=== PATIENT | female | born 1995 | race Caucasian/White ===

== ENCOUNTER 2019-02-15 04:24 | Inpatient (IN) | payer BC ==
[2019-02-15] MEDS ORDERED: ceFAZolin 2 GM in Premix Bag 1 BAG IV ONE (05:19)
[2019-02-15] MEDS ORDERED: Metoclopramide 10 MG/2 ML SDV IVPUSH ONE (05:19)
[2019-02-15] MEDS ORDERED: Nalbuphine 10 MG/1 ML Vial IVPUSH PRN (05:19)
[2019-02-15] MEDS ORDERED: Citric Acid/Sodium Citrate Solution 30 ML Cup PO ONE (05:19)
[2019-02-15] MEDS ORDERED: Sodium Chloride 0.9% 10 ML Syringe FLUSH PRN (05:19)
[2019-02-15] MEDS ORDERED: Azithromycin 500 MG in Sodium Chloride 0.9% 250 ML IV ONE (05:29)
[2019-02-15] MEDS ORDERED: Lactated Ringers 1,000 ML IV SCH (05:30)
--- NOTE | 2019-02-15 05:50 | PCM.LDHP ---
L&D History of Present Illness - General Date of Service: 02/15/19 Admit Problem/Dx: Patient Status Order with Admit Dx/Problem 02/15/19 04:38 Patient Status [ADT] Routine 02/15/19 05:19 Patient Status [ADT] Routine Admission Diagnosis/Problem Admission Diagnosis/Problem Source of Information: Patient History Limitations: Reports: No Limitations - History of Present Illness Introduction:: Patient is a 24 y/o at 39 0/7 wks who presents with SROM. Patient has history of and was to undergo a planned RLTCS tomorrow AM. Has been doing well, but around midnight noted a large gush of clear fluid. 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: , Other (See Below) (History of endometritis after 1st ) : 2 Para: 1 LMP (Approximate): - Past Surgical History Female Surgical History: Reports: Section Social & Family History - Tobacco Use Smoking Status *Q: Never Smoker - Alcohol Use Alcohol Use History: No - Recreational Drug Use Recreational Drug Use: No H&P Review of Systems - Review of Systems: Review Of Systems: See Below General: Reports: No Symptoms Pulmonary: Reports: No Symptoms Cardiovascular: Reports: No Symptoms Gastrointestinal: Reports: No Symptoms Genitourinary: Reports: No Symptoms Musculoskeletal: Reports: No Symptoms Psychiatric: Reports: No Symptoms Neurological: Reports: No Symptoms L&D Exam - Exam Exam: See Below - Vital Signs Weight: 89.358 kg - OB Specific Contraction Intensity: Mild to Moderate Movement: Active Heart Tones: Present Heart Tones per Min: 135 Heart Rate (FHR) Variability: Moderate (6-25 bmp) - Brown Score Rbown Score Consistency: Soft Brown Score Dilation: Closed Brown Score Infant's Station: -3 - Exam General: Alert, Oriented, Cooperative Lungs: Clear to Auscultation, Normal Respiratory Effort Cardiovascular: Regular Rate, Regular Rhythm GI/Abdominal Exam: Soft, Non-Tender Extremities: Normal Inspection Skin: Warm, Dry, Intact - Patient Data Lab Results Last 24 hrs: Laboratory Results - last 24 hr 02/15/19 Range/Units 05:30 WBC 7.24 (3.98-10.04) K/mm3 RBC 4.29 (3.98-5.22) M/mm3 Hgb 12.6 (11.2-15.7) gm/dl Hct 37.3 (34.1-44.9) % MCV 86.9 (79.4-94.8) fl MCH 29.4 (25.6-32.2) pg MCHC 33.8 (32.2-35.5) g/dl RDW Std Deviation 39.8 (36.4-46.3) fL Plt Count 192 (182-369) K/mm3 MPV 10.6 (9.4-12.3) fl Neut % (Auto) 63.5 (34.0-71.1) % Lymph % (Auto) 21.3 (19.3-51.7) % [place] % (Auto) 14.2 H (4.7-12.5) % Eos % (Auto) 0.8 (0.7-5.8) Baso % (Auto) 0.1 (0.1-1.2) % Neut # (Auto) 4.59 (1.56-6.13) K/mm3 Lymph # (Auto) 1.54 (1.18-3.74) K/mm3 [place] # (Auto) 1.03 H (0.24-0.36) K/mm3 Eos # (Auto) 0.06 (0.04-0.36) K/mm3 Baso # (Auto) 0.01 (0.01-0.08) K/mm3 Result Diagrams: 02/15/19 05:30 - Problem List (1) 39 weeks gestation of SNOMED Code(s): 49154554 ICD Code: Z3A.39 - 39 WEEKS GESTATION OF Status: Acute Current Visit: Yes (2) History of SNOMED Code(s): 851741936 ICD Code: Z98.891 - HISTORY OF UTERINE SCAR FROM PREVIOUS SURGERY Status: Acute Current Visit: Yes (3) SROM (spontaneous rupture of membranes) SNOMED Code(s): 852629322 ICD Code: [id number] - Status: Acute Current Visit: Yes Problem List Initiated/Reviewed/Updated: Yes Orders Last 24hrs: Active Orders 24 hr Category Date Time Status Patient Status [ADT] Routine ADT 02/15/19 05:19 Active Communication Order [RC] ROUTINE Care 02/15/19 05:19 Active Heart Tones [RC] PER UNIT ROUTINE Care 02/15/19 05:19 Active Non Stress Test [RC] PER UNIT ROUTINE Care 02/15/19 04:38 Active Peripheral IV Care [RC] . DIRECTED Care 02/15/19 05:20 Active Procedure Site Prep Instruct [RC] ASDIRECTED Care 02/15/19 05:19 Active Verify Patient Consent Obtain [RC] PER UNIT ROUTINE Care 02/15/19 05:19 Active Vital Signs [RC] PER UNIT ROUTINE Care 02/15/19 04:38 Active Vital Signs [RC] PFP Care 02/15/19 05:19 Active AMNISURE RUPTURE MEMBRAN [BF] Stat Lab 02/15/19 04:38 Ordered RAPID PLASMA REAGIN,RPR [CHEM] Routine Lab 02/15/19 05:30 Received TYPE AND SCREEN [BBK] Stat Lab 02/15/19 05:30 Received Azithromycin [Zithromax] 500 mg Med 02/15/19 05:29 Active Sodium Chloride 0.9% [Normal Saline] 250 ml IV ONETIME Lactated Ringers [Ringers, Lactated] 1,000 ml Med 02/15/19 05:30 Active IV ASDIRECTED Nalbuphine [Nubain] Med 02/15/19 05:19 Active 10 mg IVPUSH Q2H PRN Sodium Chloride 0.9% [Saline Flush] Med 02/15/19 05:19 Active 10 ml FLUSH ASDIRECTED PRN ceFAZolin [Ancef] 2 gm Med 02/15/19 05:19 Active Premix Bag 1 bag IV ONETIME Peripheral IV Insertion Adult [OM.PC] Routine Oth 02/15/19 05:19 Ordered Schedule Procedure [COMM] Per Unit Routine Oth 02/15/19 05:19 Ordered Resuscitation Status Routine Resus Stat 02/15/19 04:38 Ordered Medication Orders Azithromycin 500 mg/ Sodium (Chloride) 250 mls @ 250 mls/hr IV ONETIME ONE Stop: 02/15/19 06:28 Lactated Ringer's (Ringers, Lactated) 1,000 mls @ 125 mls/hr IV ASDIRECTED MAC Nalbuphine HCl (Nubain) 10 mg IVPUSH Q2H PRN PRN Reason: Pain Sodium Chloride (Saline Flush) 10 ml FLUSH ASDIRECTED PRN PRN Reason: Keep Vein Open Assessment/Plan Comment:: * Labs * Ancef and Azithromycin OCTOR (Reports PCN allergy. States she was told this after admitted for endometritis. Never noted allergy prior. Tolerated her antibiotic last time. Presumed to be Ancef) * Consent reviewed and signed * Anesthesia and Peds made aware
--- NOTE | 2019-02-15 06:00 | PCM.OPNOTE ---
- General Post-Op/Procedure Note Date of Surgery/Procedure: 02/15/19 Operative Procedure(s): Repeat Findings: Minimal scar tissue between the rectus and fascia. Minimal scarring intraabdominally. Baby girl in vertex presentation. APGARS of 8 & 9. Weight of 6 lbs 12 oz Pre Op Diagnosis: 39 weeks gestation. Hx of . SROM Post-Op Diagnosis: Same Anesthesia Technique: Spinal Primary Surgeon: Verónica Cyr Secondary Surgeon: Tejas Jones Jr Anesthesia Provider: Richi Damon Reason Business Intelligence Engineer Was Necessary: Speed, safety of procedure. BMI Pathology: Cord blood collected. Placenta discarded. Fluid Replacement, Intraop: 2,250 Output, Urine Amount: 225 EBL in mLs: 600 Complications: None Condition: Good Free Text/Narrative:: The risks, benefits, indications, potential complications, and alternatives were explained to the patient and informed consent obtained. After induction of anesthesia, the patient was placed in a supine position and then draped and prepped in the usual sterile manner. A Pfannenstiel incision was made and carried down through the subcutaneous tissue to the fascia. Fascial incision was made and extended transversely. The fascia was from the underlying rectus tissue superiorly and inferiorly. The peritoneum was identified and entered. Peritoneal incision was extended longitudinally. The utero-vesical peritoneal reflection was incised transversely and the bladder flap was bluntly freed from the lower uterine segment. A low transverse uterine incision was made sharply with a scalpel and extended bluntly in a cephalocaudad direction. Of note, it was seen after hysterotomy that a small, < 2 cm, shallow cut was noted to just above baby restoration. A baby girl was delivered from a vertex presentation with APGARS as above. After the umbilical cord was clamped and cut cord blood was obtained for evaluation. The placenta was removed intact and appeared normal. The uterus was exteriorized and cleared of clots. The uterine outline, tubes and ovaries appeared normal. The uterine incision was closed with running locked sutures of 0 Vicryl. Hemostasis noted. The uterus was then placed back into the abdomen. The infracolic gutters were cleared of blood clots. The fascia was then reapproximated with running sutures of 0 Vicryl. The subcutaneous tissue was irrigated with sterile warm normal saline, hemostasis obtained with cautery. This layer was also closed with a running 0 Vicryl suture. The skin was reapproximated with running Subcuticular 4-0 monocryl sutures. Instrument, sponge, and needle counts were correct prior the abdominal closure and at the conclusion of the case.
[2019-02-15] MEDS ORDERED: diphenhydrAMINE 50 MG/ML SDV IVPUSH PRN ×2 (07:15→08:41)
--- NOTE | 2019-02-15 07:16 | PCM.POSTAN ---
POST ANESTHESIA ASSESSMENT - MENTAL STATUS Mental Status: Alert, Oriented - RESPIRATORY Respiratory Status: Respiratory Rate WNL, Airway Patent, O2 Saturation Stable - CARDIOVASCULAR CV Status: Pulse Rate WNL, Blood Pressure Stable - GASTROINTESTINAL GI Status: No Symptoms - POST OP HYDRATION Hydration Status: Adequate & Stable - OBSERVATIONS Free Text/Narrative:: no anesthesia complications noted
--- NOTE | 2019-02-15 07:17 | PCM.PREANE ---
Preanesthetic Assessment - Procedure Proposed Procedure: C section - Anesthesia/Transfusion/Family Hx Anesthesia History: Prior Anesthesia Without Reaction Family History of Anesthesia Reaction: No Transfusion History: No Prior Transfusion(s) - Review of Systems General: No Symptoms Pulmonary: No Symptoms Cardiovascular: No Symptoms Gastrointestinal: No Symptoms Neurological: No Symptoms Other: Reports: None - Physical Assessment NPO Status Date: 02/14/19 NPO Status Time: 00:00 Height: 1.68 m Weight: 89.358 kg ASA Class: 2 Mental Status: Alert & Oriented x3 Airway Class: Mallampati = 1 Dentition: Reports: Normal Dentition Thyro-Mental Finger Breadths: 3 Mouth Opening Finger Breadths: 3 ROM/Head Extension: Full Lungs: Clear to Auscultation, Normal Respiratory Effort Cardiovascular: Regular Rate, Regular Rhythm - Lab Values: Laboratory Last Values WBC 7.24 K/mm3 (3.98-10.04) 02/15/19 05:30 RBC 4.29 M/mm3 (3.98-5.22) 02/15/19 05:30 Hgb 12.6 gm/dl (11.2-15.7) 02/15/19 05:30 Hct 37.3 % (34.1-44.9) 02/15/19 05:30 MCV 86.9 fl (79.4-94.8) 02/15/19 05:30 MCH 29.4 pg (25.6-32.2) 02/15/19 05:30 MCHC 33.8 g/dl (32.2-35.5) 02/15/19 05:30 RDW Std Deviation 39.8 fL (36.4-46.3) 02/15/19 05:30 Plt Count 192 K/mm3 (182-369) 02/15/19 05:30 MPV 10.6 fl (9.4-12.3) 02/15/19 05:30 Neut % (Auto) 63.5 % (34.0-71.1) 02/15/19 05:30 Lymph % (Auto) 21.3 % (19.3-51.7) 02/15/19 05:30 [place] % (Auto) 14.2 % (4.7-12.5) H 02/15/19 05:30 Eos % (Auto) 0.8 (0.7-5.8) 02/15/19 05:30 Baso % (Auto) 0.1 % (0.1-1.2) 02/15/19 05:30 Neut # (Auto) 4.59 K/mm3 (1.56-6.13) 02/15/19 05:30 Lymph # (Auto) 1.54 K/mm3 (1.18-3.74) 02/15/19 05:30 [place] # (Auto) 1.03 K/mm3 (0.24-0.36) H 02/15/19 05:30 Eos # (Auto) 0.06 K/mm3 (0.04-0.36) 02/15/19 05:30 Baso # (Auto) 0.01 K/mm3 (0.01-0.08) 02/15/19 05:30 Blood Type O POSITIVE 02/15/19 05:30 Gel Antibody Screen Negative 02/15/19 05:30 - Allergies Allergies/Adverse Reactions: Allergies Allergy/AdvReac Type Severity Reaction Status Date / Time Penicillins Allergy Anaphylactic Verified 02/15/19 04:38 Shock - Anesthesia Plan Pre-Op Medication Ordered: None - Acknowledgements Anesthesia Type Planned: Spinal Pt an Appropriate Candidate for the Planned Anesthesia: Yes Alternatives and Risks of Anesthesia Discussed w Pt/Guardian: Yes Pt/Guardian Understands and Agrees with Anesthesia Plan: Yes PreAnesthesia Questionnaire Gastrointestinal History: Reports: GERD 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: , Other (See Below) (History of endometritis after 1st ) - Past Surgical History Female Surgical History: Reports: Section - SUBSTANCE USE Smoking Status *Q: Never Smoker Recreational Drug Use History: No - CURRENT (IN HOUSE) MEDS Current Meds: Current Medications Diphenhydramine HCl (Benadryl) 25 mg IVPUSH Q6H PRN PRN Reason: Itching Lactated Ringer's (Ringers, Lactated) 1,000 mls @ 125 mls/hr IV ASDIRECTED MAC Last Admin: 02/15/19 05:51 Dose: 999 mls/hr Nalbuphine HCl (Nubain) 10 mg IVPUSH Q2H PRN PRN Reason: Pain Sodium Chloride (Saline Flush) 10 ml FLUSH ASDIRECTED PRN PRN Reason: Keep Vein Open Discontinued Medications Citric Acid/Sodium Citrate (Bicitra Solution) 30 ml PO ONETIME ONE Stop: 02/15/19 05:20 Last Admin: 02/15/19 06:03 Dose: 30 ml Cefazolin Sodium/Dextrose 2 gm (/ Premix) 50 mls @ 100 mls/hr IV ONETIME ONE Stop: 02/15/19 05:48 Azithromycin 500 mg/ Sodium (Chloride) 250 mls @ 250 mls/hr IV ONETIME ONE Stop: 02/15/19 06:28 Last Admin: 02/15/19 06:05 Dose: 250 mls/hr Metoclopramide HCl (Reglan) 10 mg IVPUSH ONETIME ONE Stop: 02/15/19 05:20 Last Admin: 02/15/19 05:59 Dose: 10 mg
[2019-02-15] MEDS ORDERED: Docusate Sodium 100 MG Cap PO PRN (08:41)
[2019-02-15] MEDS ORDERED: ePHEDrine 50 MG/ML SDV IVPUSH PRN (08:41)
[2019-02-15] MEDS ORDERED: Dextrose 5%-Lactated Ringers 1,000 ML IV SCH (08:41)
[2019-02-15] MEDS: Ketorolac 30 MG/ML SDV IVPUSH SCH ×2 (12:30→18:54)
[2019-02-15] MEDS: Acetaminophen/oxyCODONE 325-5 MG Tab PO PRN (20:08)
[2019-02-16] MEDS: Ketorolac 30 MG/ML SDV IVPUSH SCH (02:31)
[2019-02-16] MEDS: Acetaminophen/oxyCODONE 325-5 MG Tab PO PRN ×5 (06:33→21:23)
--- NOTE | 2019-02-16 07:36 | PCM48HPAN ---
Post Anesthesia Note - EVALUATION WITHIN 48HRS OF ANESTHETIC Vital Signs in Normal Range: Yes Patient Participated in Evaluation: Yes Respiratory Function Stable: Yes Airway Patent: Yes Cardiovascular Function Stable: Yes Hydration Status Stable: Yes Pain Control Satisfactory: Yes Nausea and Vomiting Control Satisfactory: Yes Mental Status Recovered: Yes Vital Signs: Last Vital Signs Temp 37.1 C 02/16/19 02:35 Pulse 74 02/16/19 02:35 Resp 16 02/16/19 06:00 BP 120/75 02/16/19 02:35 Pulse Ox 99 02/16/19 06:00 - COMMENTS/OBSERVATIONS Free Text/Narrative:: no anesthesia complications noted
--- NOTE | 2019-02-16 08:18 | PCM.PNPP ---
- General Info Date of Service: 02/16/19 Functional Status: Reports: Pain Controlled, Tolerating Diet, Ambulating - Review of Systems General: Reports: No Symptoms Pulmonary: Reports: No Symptoms Cardiovascular: Reports: No Symptoms Gastrointestinal: Reports: Abdominal Pain (better managed since last night) Genitourinary: Reports: No Symptoms Musculoskeletal: Reports: No Symptoms Neurological: Reports: No Symptoms - Patient Data Vital Signs - Most Recent: Last Vital Signs Temp 37.3 C 02/16/19 08:00 Pulse 80 02/16/19 08:00 Resp 20 02/16/19 08:00 BP 111/59 L 02/16/19 08:00 Pulse Ox 98 02/16/19 08:00 Weight - Most Recent: 89.358 kg I&O - Last 24 Hours: Intake & Output 02/15/19 02/16/19 02/16/19 22:59 06:59 14:59 Intake Total 500 1000 Output Total 3000 3200 Balance -2500 -2200 Lab Results - Last 24 Hours: Laboratory Results - last 24 hr 02/15/19 02/16/19 Range/Units 05:30 05:35 WBC 7.06 (3.98-10.04) K/mm3 RBC 3.56 L (3.98-5.22) M/mm3 Hgb 10.6 L D (11.2-15.7) gm/dl Hct 31.5 L (34.1-44.9) % MCV 88.5 (79.4-94.8) fl MCH 29.8 (25.6-32.2) pg MCHC 33.7 (32.2-35.5) g/dl RDW Std Deviation 40.5 (36.4-46.3) fL Plt Count 137 L (182-369) K/mm3 MPV 10.8 (9.4-12.3) fl RPR Non-reactive (NONREACTIVE) Med Orders - Current: Current Medications Diphenhydramine HCl (Benadryl) 25 mg IVPUSH Q6H PRN PRN Reason: Itching Diphenhydramine HCl (Benadryl) 25 mg IVPUSH Q6H PRN PRN Reason: Itching or Nausea Last Admin: 02/15/19 09:16 Dose: 25 mg Docusate Sodium (Colace) 100 mg PO Q12H PRN PRN Reason: Constipation Ephedrine Sulfate (Ephedrine Sulfate) 5 mg IVPUSH SEECOMMENT PRN PRN Reason: Other Ibuprofen (Motrin) 600 mg PO Q6H PRN PRN Reason: mild pain or fever Oxycodone/Acetaminophen (Percocet 325-5 Mg) 1 - 2 tab PO Q4H PRN PRN Reason: Pain (moderate 4-6) Last Admin: 02/16/19 06:33 Dose: 2 tab Discontinued Medications Citric Acid/Sodium Citrate (Bicitra Solution) 30 ml PO ONETIME ONE Stop: 02/15/19 05:20 Last Admin: 02/15/19 06:03 Dose: 30 ml Cefazolin Sodium/Dextrose 2 gm (/ Premix) 50 mls @ 100 mls/hr IV ONETIME ONE Stop: 02/15/19 05:48 Azithromycin 500 mg/ Sodium (Chloride) 250 mls @ 250 mls/hr IV ONETIME ONE Stop: 02/15/19 06:28 Last Admin: 02/15/19 06:05 Dose: 250 mls/hr Lactated Ringer's (Ringers, Lactated) 1,000 mls @ 125 mls/hr IV ASDIRECTED [facility] Last Admin: 02/15/19 05:51 Dose: 999 mls/hr Dextrose/Lactated Ringer's (Dextrose 5%-Lactated Ringers) 1,000 mls @ 125 mls/ hr IV ASDIRECTED MAC Stop: 02/15/19 16:40 Last Admin: 02/15/19 12:31 Dose: 125 mls/hr Ketorolac Tromethamine (Toradol) 30 mg IVPUSH Q6H [facility] Stop: 02/16/19 00:46 Last Admin: 02/16/19 02:31 Dose: 30 mg Metoclopramide HCl (Reglan) 10 mg IVPUSH ONETIME ONE Stop: 02/15/19 05:20 Last Admin: 02/15/19 05:59 Dose: 10 mg Nalbuphine HCl (Nubain) 10 mg IVPUSH Q2H PRN PRN Reason: Pain Sodium Chloride (Saline Flush) 10 ml FLUSH ASDIRECTED PRN PRN Reason: Keep Vein Open - Interaction Disposition, : in Room with Family Interaction: Holding Infant Feeding: Breastfed Infant; Nursed Well Support Person: - Recovery Exam Fundal Tone: Firm Fundal Level: 1 Fingerbreadths Below Umbilicus Fundal Placement: Midline Lochia Amount: Scant, Small Lochia Color: Rubra/Red Perineum Description: - Exam General: Alert, Oriented, Cooperative Lungs: Clear to Auscultation, Normal Respiratory Effort Cardiovascular: Regular Rate, Regular Rhythm GI/Abdominal Exam: Soft, Tender (appropriate post op) Extremities: Normal Inspection Skin: Warm, Dry, Intact Wound/Incisions: Healing Well, No Drainage - Problem List & Annotations (1) 39 weeks gestation of SNOMED Code(s): 81663772 Code(s): Z3A.39 - 39 WEEKS GESTATION OF Status: Acute Current Visit: Yes (2) History of SNOMED Code(s): 866417161 Code(s): Z98.891 - HISTORY OF UTERINE SCAR FROM PREVIOUS SURGERY Status: Acute Current Visit: Yes (3) SROM (spontaneous rupture of membranes) SNOMED Code(s): 805988586 Code(s): JIG2003 - Status: Acute Current Visit: Yes (4) S/P repeat low transverse SNOMED Code(s): 051024502, 30241741, 166086984, 939506750, 526329550 Code(s): Z98.891 - HISTORY OF UTERINE SCAR FROM PREVIOUS SURGERY Status: Acute Current Visit: Yes - Problem List Review Problem List Initiated/Reviewed/Updated: Yes - My Orders Last 24 Hours: My Active Orders 02/15/19 08:41 Activity as Tolerated [RC] Q4H Communication Order [RC] PER UNIT ROUTINE Intake and Output [RC] Q4HR May Shower [RC] PER UNIT ROUTINE Notify Provider Intake and Out [RC] ASDIRECTED RT Incentive Spirometry [RC] Q2HWA Vital Signs [RC] PER UNIT ROUTINE Acetaminophen/oxyCODONE [Percocet 325-5 MG] 1 - 2 tab PO Q4H PRN Docusate Sodium [Colace] 100 mg PO Q12H PRN diphenhydrAMINE [Benadryl] 25 mg IVPUSH Q6H PRN ePHEDrine [ePHEDrine sulfate] 5 mg IVPUSH SEECOMMENT PRN Assess Lochia [WOMSER] Per Unit Routine Assess Uterine Involution [WOMSER] Per Unit Routine Breast Pump [WOMSER] Per Unit Routine Peripheral IV Discontinue [OM.PC] Routine Sequential Compression Device [OM.PC] Per Unit Routine 02/16/19 06:00 Ibuprofen [Motrin] 600 mg PO Q6H PRN - Assessment Assessment:: 24 y/o POD#1 from RLTCS - Plan Plan:: * Routine cares * Breast feeding * Discharge home in 1-2 days
[2019-02-16] MEDS: Ibuprofen 600 MG Tab PO PRN ×2 (10:42→17:11)
[2019-02-17] MEDS: Ibuprofen 600 MG Tab PO PRN ×2 (02:13→09:38)
--- NOTE | 2019-02-17 06:34 | PCM.PNPP ---
- General Info Date of Service: 02/17/19 Functional Status: Reports: Pain Controlled, Tolerating Diet, Ambulating, Urinating - Review of Systems General: Reports: No Symptoms Pulmonary: Reports: No Symptoms Cardiovascular: Reports: No Symptoms Gastrointestinal: Reports: No Symptoms Genitourinary: Reports: No Symptoms Musculoskeletal: Reports: No Symptoms Neurological: Reports: No Symptoms - Patient Data Vital Signs - Most Recent: Last Vital Signs Temp 36.4 C 02/17/19 02:35 Pulse 80 02/17/19 02:35 Resp 16 02/17/19 02:35 BP 116/60 02/17/19 02:35 Pulse Ox 99 02/17/19 02:35 Weight - Most Recent: 89.358 kg I&O - Last 24 Hours: Intake & Output 02/16/19 02/16/19 02/17/19 14:59 22:59 06:59 Intake Total 3030 Output Total 575 Balance 2455 Med Orders - Current: Current Medications Diphenhydramine HCl (Benadryl) 25 mg IVPUSH Q6H PRN PRN Reason: Itching Diphenhydramine HCl (Benadryl) 25 mg IVPUSH Q6H PRN PRN Reason: Itching or Nausea Last Admin: 02/15/19 09:16 Dose: 25 mg Docusate Sodium (Colace) 100 mg PO Q12H PRN PRN Reason: Constipation Last Admin: 02/16/19 10:42 Dose: 100 mg Ephedrine Sulfate (Ephedrine Sulfate) 5 mg IVPUSH SEECOMMENT PRN PRN Reason: Other Ibuprofen (Motrin) 600 mg PO Q6H PRN PRN Reason: mild pain or fever Last Admin: 02/17/19 02:13 Dose: 600 mg Oxycodone/Acetaminophen (Percocet 325-5 Mg) 1 - 2 tab PO Q4H PRN PRN Reason: Pain (moderate 4-6) Last Admin: 02/16/19 21:23 Dose: 2 tab Discontinued Medications Citric Acid/Sodium Citrate (Bicitra Solution) 30 ml PO ONETIME ONE Stop: 02/15/19 05:20 Last Admin: 02/15/19 06:03 Dose: 30 ml Cefazolin Sodium/Dextrose 2 gm (/ Premix) 50 mls @ 100 mls/hr IV ONETIME ONE Stop: 02/15/19 05:48 Last Admin: 02/16/19 17:30 Dose: Not Given Azithromycin 500 mg/ Sodium (Chloride) 250 mls @ 250 mls/hr IV ONETIME ONE Stop: 02/15/19 06:28 Last Admin: 02/15/19 06:05 Dose: 250 mls/hr Lactated Ringer's (Ringers, Lactated) 1,000 mls @ 125 mls/hr IV ASDIRECTED MAC Last Admin: 02/15/19 05:51 Dose: 999 mls/hr Dextrose/Lactated Ringer's (Dextrose 5%-Lactated Ringers) 1,000 mls @ 125 mls/ hr IV ASDIRECTED MAC Stop: 02/15/19 16:40 Last Admin: 02/15/19 12:31 Dose: 125 mls/hr Ketorolac Tromethamine (Toradol) 30 mg IVPUSH Q6H [facility] Stop: 02/16/19 00:46 Last Admin: 02/16/19 02:31 Dose: 30 mg Metoclopramide HCl (Reglan) 10 mg IVPUSH ONETIME ONE Stop: 02/15/19 05:20 Last Admin: 02/15/19 05:59 Dose: 10 mg Nalbuphine HCl (Nubain) 10 mg IVPUSH Q2H PRN PRN Reason: Pain Sodium Chloride (Saline Flush) 10 ml FLUSH ASDIRECTED PRN PRN Reason: Keep Vein Open - Interaction Disposition, : in Room with Family Infant Interaction: Holding Infant Infant Feeding: Breastfed Infant; Nursed Well Support Person: - Recovery Exam Fundal Tone: Firm Fundal Level: 1 Fingerbreadths Below Umbilicus Fundal Placement: Midline Lochia Amount: Scant, Small Lochia Color: Rubra/Red Perineum Description: Intact, Minimal Bruising/Swelling Bladder Status: Voiding Urinary Elimination: Indwelling Catheter - Exam General: Alert, Oriented, Cooperative Lungs: Clear to Auscultation, Normal Respiratory Effort Cardiovascular: Regular Rate, Regular Rhythm GI/Abdominal Exam: Soft, Non-Tender Extremities: Normal Inspection Skin: Warm, Dry, Intact Wound/Incisions: Healing Well, No Drainage - Problem List & Annotations (1) 39 weeks gestation of SNOMED Code(s): 58716224 Code(s): Z3A.39 - 39 WEEKS GESTATION OF Status: Acute Current Visit: Yes (2) History of SNOMED Code(s): 512049786 Code(s): Z98.891 - HISTORY OF UTERINE SCAR FROM PREVIOUS SURGERY Status: Acute Current Visit: Yes (3) SROM (spontaneous rupture of membranes) SNOMED Code(s): 323996336 Code(s): BBQ9380 - Status: Acute Current Visit: Yes (4) S/P repeat low transverse SNOMED Code(s): 598297811, 24186923, 060016802, 493587412, 577472909 Code(s): Z98.891 - HISTORY OF UTERINE SCAR FROM PREVIOUS SURGERY Status: Acute Current Visit: Yes - Problem List Review Problem List Initiated/Reviewed/Updated: Yes - My Orders Last 24 Hours: My Active Orders 02/16/19 06:00 Ibuprofen [Motrin] 600 mg PO Q6H PRN - Assessment Assessment:: 24 y/o POD#2 from RLTCS - Plan Plan:: * Routine cares * Breast feeding * Discharge home today per patient preference
--- NOTE | 2019-02-17 07:09 | PCM.DCSUM1 ---
Discharge Summary - Discharge Data Discharge Date: 02/17/19 Discharge Disposition: Home, Self-Care 01 Condition: Good - Referral to Home Health Primary Care Physician: Verónica Cyr MD - Discharge Diagnosis/Problem(s) (1) 39 weeks gestation of SNOMED Code(s): 45103883 ICD Code: Z3A.39 - 39 WEEKS GESTATION OF Status: Acute Current Visit: Yes (2) History of SNOMED Code(s): 044070927 ICD Code: Z98.891 - HISTORY OF UTERINE SCAR FROM PREVIOUS SURGERY Status: Acute Current Visit: Yes (3) SROM (spontaneous rupture of membranes) SNOMED Code(s): 396558501 ICD Code: AAL6180 - Status: Acute Current Visit: Yes (4) S/P repeat low transverse SNOMED Code(s): 547898407, 62872725, 808051071, 222200924, 639616678 ICD Code: Z98.891 - HISTORY OF UTERINE SCAR FROM PREVIOUS SURGERY Status: Acute Current Visit: Yes - Patient Summary/Data Operative Procedure(s) Performed: Repeat Complications: None Consults: None Recommended Follow-up Testing/Procedures: Follow up in 1 week for incision check Hospital Course: 24 y/o presented at 39 0/7 wks with SROM. Had planned to undergo repeat later in week. Was again given options of TOLAC, but declined. Repeat was uncomplicated. See operative note. patient did well and was discharged home on POD#2 - Patient Instructions Diet: Regular Diet as Tolerated Activity: No Lifting Over 10 Pounds Activity, Other: Pelvic Rest for 6 weeks Driving: Do Not Drive (While taking narcotics ) Showering/Bathing: May Shower, No Tub Bathing/Swimming Wound/Incision Care: Keep Operative Site/Wound Site Clean and Dry Notify Provider of: Fever, Increased Pain, Swelling and Redness, Drainage, Nausea and/or Vomiting - Discharge Plan *PRESCRIPTION DRUG MONITORING PROGRAM REVIEWED*: No *COPY OF PRESCRIPTION DRUG MONITORING REPORT IN PATIENT JAMMIE: No Prescriptions/Med Rec: Acetaminophen/oxyCODONE [Percocet 325-5 MG] 1 - 2 tab PO Q4H PRN #20 tablet PRN Reason: Pain (Moderate 4-6) Home Medications: Home Meds Acetaminophen/oxyCODONE [Percocet 325-5 MG] 1 - 2 tab PO Q4H PRN #20 tablet [Rx] Docusate Sodium [Colace] 100 mg PO Q12H PRN cap 02/17/19 [Rx] Ibuprofen [Motrin] 600 mg PO Q6H PRN tablet 02/17/19 [Rx] Referrals: Verónica Cyr MD [Primary Care Provider] - (1 week ) - Discharge Summary/Plan Comment DC Time >30 min.: No - Patient Data Vitals - Most Recent: Last Vital Signs Temp 36.4 C 02/17/19 02:35 Pulse 80 02/17/19 02:35 Resp 16 02/17/19 02:35 BP 116/60 02/17/19 02:35 Pulse Ox 99 02/17/19 02:35 Weight - Most Recent: 89.358 kg Med Orders - Current: Current Medications Diphenhydramine HCl (Benadryl) 25 mg IVPUSH Q6H PRN PRN Reason: Itching Diphenhydramine HCl (Benadryl) 25 mg IVPUSH Q6H PRN PRN Reason: Itching or Nausea Last Admin: 02/15/19 09:16 Dose: 25 mg Docusate Sodium (Colace) 100 mg PO Q12H PRN PRN Reason: Constipation Last Admin: 02/16/19 10:42 Dose: 100 mg Ephedrine Sulfate (Ephedrine Sulfate) 5 mg IVPUSH SEECOMMENT PRN PRN Reason: Other Ibuprofen (Motrin) 600 mg PO Q6H PRN PRN Reason: mild pain or fever Last Admin: 02/17/19 02:13 Dose: 600 mg Oxycodone/Acetaminophen (Percocet 325-5 Mg) 1 - 2 tab PO Q4H PRN PRN Reason: Pain (moderate 4-6) Last Admin: 02/16/19 21:23 Dose: 2 tab Discontinued Medications Citric Acid/Sodium Citrate (Bicitra Solution) 30 ml PO ONETIME ONE Stop: 02/15/19 05:20 Last Admin: 02/15/19 06:03 Dose: 30 ml Cefazolin Sodium/Dextrose 2 gm (/ Premix) 50 mls @ 100 mls/hr IV ONETIME ONE Stop: 02/15/19 05:48 Last Admin: 02/16/19 17:30 Dose: Not Given Azithromycin 500 mg/ Sodium (Chloride) 250 mls @ 250 mls/hr IV ONETIME ONE Stop: 02/15/19 06:28 Last Admin: 02/15/19 06:05 Dose: 250 mls/hr Lactated Ringer's (Ringers, Lactated) 1,000 mls @ 125 mls/hr IV ASDIRECTED MAC Last Admin: 02/15/19 05:51 Dose: 999 mls/hr Dextrose/Lactated Ringer's (Dextrose 5%-Lactated Ringers) 1,000 mls @ 125 mls/ hr IV ASDIRECTED MAC Stop: 02/15/19 16:40 Last Admin: 02/15/19 12:31 Dose: 125 mls/hr Ketorolac Tromethamine (Toradol) 30 mg IVPUSH Q6H [facility] Stop: 02/16/19 00:46 Last Admin: 02/16/19 02:31 Dose: 30 mg Metoclopramide HCl (Reglan) 10 mg IVPUSH ONETIME ONE Stop: 02/15/19 05:20 Last Admin: 02/15/19 05:59 Dose: 10 mg Nalbuphine HCl (Nubain) 10 mg IVPUSH Q2H PRN PRN Reason: Pain Sodium Chloride (Saline Flush) 10 ml FLUSH ASDIRECTED PRN PRN Reason: Keep Vein Open
[2019-02-17] MEDS: Acetaminophen/oxyCODONE 325-5 MG Tab PO PRN (08:13)
== END 2019-02-17 09:50 | disposition home or self-care (01) | DRG 540 ==
LOC: JD.OBCHECK 04:24 → JD.OB 06:05
PROVIDERS: ADMIT Obstetrics & Gynecology; ATTEND Obstetrics & Gynecology
PROC: 10D00Z1 Extraction of Products of Conception, Low, Open Approach (ICD-10-PCS; principal; 2019-02-15)
DX: O34.211 Maternal care for low transverse scar from previous cesarean delivery (principal); Z3A.39 39 weeks gestation of pregnancy; Z37.0 Single live birth; Z88.0 Allergy status to penicillin
CPT/HCPCS: 01961; 36415; 59025; 85025; 85027; 86592; 86850; 86900; 86901; 94762; A9270-GY; J0456; J1200; J1885; J2765; J7042; J7050; J7120

== ENCOUNTER 2023-01-13 07:05 | Inpatient (IN) | payer BC ==
[~2023-01-13 07:05] MED LIST: Bupivacaine 0.25% 10 ML SDV ONE
[2023-01-13] MEDS ORDERED: Lidocaine 1% 50 ML MDV INJECT ONE (07:07)
[2023-01-13] MEDS ORDERED: Nalbuphine 10 MG/0.5 ML Syringe IVPUSH PRN (07:07)
[2023-01-13] MEDS ORDERED: Sodium Chloride 0.9% 10 ML Syringe FLUSH PRN (07:07)
[2023-01-13] MEDS ORDERED: Oxytocin/Lactated Ringers 10 UNIT/1,000 ML BAG IV SCH ×2 (07:15)
[2023-01-13] MEDS ORDERED: fentaNYL 100 MCG/2 ML SDV EPIDUR PRN (07:46)
[2023-01-13] MEDS ORDERED: diphenhydrAMINE 50 MG/ML SDV IVPUSH PRN ×2 (07:46→18:15)
[2023-01-13] MEDS ORDERED: ePHEDrine 50 MG/ML SDV IVPUSH PRN ×2 (07:46→18:15)
[2023-01-13] MEDS ORDERED: Bupivacaine/fentaNYL/NS 100 ML Bag EPIDUR PRN (07:46)
[2023-01-13 07:56] LABS: HEMATOCRIT 38.1 % (37.0-47.0); MEAN CORPUSCULAR HEMOGLOBIN 29.6 pg (28.0-32.0); MEAN CORPUSCULAR HGB CONC 34.1 g/dl (32.0-36.0); MEAN CORPUSCULAR VOLUME 86.8 fl (83.0-99.0); MEAN PLATELET VOLUME 10.5 fl (9.4-12.3); PLATELET COUNT,PLT 213 K/mm3 (150-400); RED BLOOD CELL COUNT 4.39 M/mm3 (4.10-5.30); WHITE BLOOD CELL COUNT,WBC 8.49 K/mm3 (3.9-11.3)
[2023-01-13] MEDS: Lactated Ringers 1,000 ML IV SCH ×3 (07:58→12:06)
[2023-01-13] MEDS ORDERED: Sodium Chloride 0.9% 10 ML Syringe FLUSH SCH (09:00)
[2023-01-13] MEDS: Ondansetron 4 MG/2 ML SDV IVPUSH PRN ×2 (10:47→15:35)
[2023-01-13] MEDS ORDERED: Citric Acid/Sodium Citrate Solution 30 ML Cup PO ONE (15:11)
[2023-01-13] MEDS ORDERED: Metoclopramide 10 MG/2 ML SDV IVPUSH ONE (15:11)
[2023-01-13] MEDS ORDERED: ceFAZolin 2 GM in Sodium Chloride 0.9% 50 ML IV ONE (15:11)
[2023-01-13] MEDS ORDERED: Azithromycin 500 MG in Sodium Chloride 0.9% 250 ML IV ONE (15:30)
[2023-01-13] MEDS ORDERED: Oxytocin 10 Units/1 ML SDV ONE (16:15)
[2023-01-13] MEDS ORDERED: Lidocaine 2% with EPINEPHrine 1:200,000 20 ML SDV ONE (16:15)
[2023-01-13] MEDS ORDERED: Morphine PF 10 MG/10 ML SDV ONE (16:16)
[2023-01-13] MEDS ORDERED: Ondansetron 4 MG/2 ML SDV ONE (16:28)
[2023-01-13] MEDS ORDERED: Ketorolac 30 MG/ML SDV ONE (16:57)
[2023-01-13] MEDS ORDERED: Meperidine 50 MG/ML Vial IVPUSH ONE (17:56)
[2023-01-13] MEDS ORDERED: Naloxone 0.4 MG/ML SDV IVPUSH PRN (18:15)
[2023-01-13] MEDS ORDERED: Docusate Sodium 100 MG Cap PO PRN (18:15)
[2023-01-13] MEDS ORDERED: Dextrose 5%-Lactated Ringers 1,000 ML IV SCH (18:15)
[2023-01-13] MEDS ORDERED: Ibuprofen 600 MG Tab PO PRN (18:15)
[2023-01-13] MEDS ORDERED: Ondansetron 4 MG/2 ML SDV IV PRN (18:15)
[2023-01-13] MEDS: Ketorolac 30 MG/ML SDV IVPUSH SCH (23:38)
[2023-01-14] MEDS: Acetaminophen/oxyCODONE 325-5 MG Tab PO PRN ×5 (03:16→21:54)
[2023-01-14] MEDS: Ketorolac 30 MG/ML SDV IVPUSH SCH ×2 (05:10→11:19)
[2023-01-14 07:10] LABS: HEMATOCRIT 30.2 % (37.0-47.0); MEAN CORPUSCULAR HEMOGLOBIN 30.3 pg (28.0-32.0); MEAN CORPUSCULAR HGB CONC 34.4 g/dl (32.0-36.0); MEAN PLATELET VOLUME 10.8 fl (9.4-12.3); PLATELET COUNT,PLT 163 K/mm3 (150-400); RED BLOOD CELL COUNT 3.43 M/mm3 (4.10-5.30)
[2023-01-14 07:24] LABS: HEMOGLOBIN 10.4 gm/dl (12.0-16.0)
[2023-01-15] MEDS: Acetaminophen/oxyCODONE 325-5 MG Tab PO PRN (03:35)
== END 2023-01-15 09:45 | disposition home or self-care (01) | DRG 540 ==
LOC: JD.OB 07:05 → OBSVTOIN 16:40 → JD.OB 16:40
PROVIDERS: ADMIT Obstetrics & Gynecology; ATTEND Obstetrics & Gynecology
PROC: 10D00Z1 Extraction of Products of Conception, Low, Open Approach (ICD-10-PCS; principal; 2023-01-13)
PROC: 10907ZC Drainage of Amniotic Fluid, Therapeutic from Products of Conception, Via Natural or Artificial Opening (ICD-10-PCS; 2023-01-13)
PROC: 3E033VJ Introduction of Other Hormone into Peripheral Vein, Percutaneous Approach (ICD-10-PCS; 2023-01-13)
DX: O34.211 Maternal care for low transverse scar from previous cesarean delivery (principal); O90.0 Disruption of cesarean delivery wound; O62.2 Other uterine inertia; Z37.0 Single live birth; Z3A.39 39 weeks gestation of pregnancy; Z79.899 Other long term (current) drug therapy; Z88.0 Allergy status to penicillin
CPT/HCPCS: 01967; 01968; 36415; 51702; 59025; 85027; 86592; 86850; 86900; 86901; 99140; A9270-GY; J0456; J1885; J2274; J2405; J2590; J2765; J3010; J3490; J7050; J7120; J7121